=== PATIENT | female | born 1965 | race Caucasian/White ===

== ENCOUNTER 2020-04-03 10:01 | Observation (INO) | payer OTHER ==
[~2020-04-03] VITALS: Ht 165.1 cm; Wt 100.6 kg
--- NOTE | 2020-04-03 10:24 | PHYS DOC ---
Past History Past Medical History: Other (ibs) Adult General Chief Complaint Chief Complaint: SHORTNESS OF BREATH HPI HPI Patient is a 55-year-old female who presents for shortness of breath. Patient reports acute on chronic shortness of breath and feelings of chest pressure. Reports symptoms have worsened in the last 3 weeks but really in past 1 week she has had increased frequency of shortness of breath. Being stationary makes better. Physical exertion makes worse. Patient denies any seema pain but does admit it is hard to take a full breath recently. Timing of symptoms has been waxing and waning since onset. Associated symptoms include lightheaded/dizziness during episodes, vision changes, new productive cough, and nausea. Patient denies any fever, known COVID-19 contacts, chest pain, abdominal pain, changes in bladder or bowel function. Patient reports she has been compliant with social distancing, works at home with who also works at home, has groceries delivered to her house etc. No recent medication changes or antibiotics. Patient has good access to primary care physician, primary care physician concerned given story and advised patient to present to our ER for evaluation Review of Systems Review of Systems Fourteen body systems of review of systems have been reviewed. See HPI for pertinent positives and negative responses, other moraes all other systems are negative, non-pertinent or non-contributory Allergies Allergies Allergies Coded Allergies Type Severity Reaction Last Updated Verified erythromycin base Allergy Unknown 04/03/20 Yes Uncoded Allergies Type Severity Reaction Last Updated Verified ERYTHRO Allergy Unknown 04/03/20 Physical Exam Physical Exam Constitutional: Well developed, well nourished, no acute distress, non-toxic appearance. [] HENT: Normocephalic, atraumatic, bilateral external ears normal, oropharynx moist, no oral exudates, nose normal. [] Eyes: PERRLA, EOMI, conjunctiva normal, no discharge. [] Neck: Normal range of motion, no tenderness, supple, no stridor. [] Cardiovascular:Heart rate regular rhythm, no murmur [] Lungs & Thorax: Bilateral breath sounds clear to auscultation [] Abdomen: Bowel sounds normal, soft, no tenderness, no masses, no pulsatile masses. [] Skin: Warm, dry, no erythema, no rash. [] Back: No tenderness, no CVA tenderness. [] Extremities: No tenderness, no cyanosis, no clubbing, ROM intact, no edema. [] Neurologic: Alert and oriented X 3, normal motor function, normal sensory function, no focal deficits noted. [] Psychologic: Affect normal, judgement normal, mood normal. [] Current Patient Data Vital Signs Vital Signs Date Time Temp Pulse Resp B/P (MAP) Pulse Ox O2 Delivery O2 Flow Rate FiO2 04/03/20 22:44 98.4 66 20 130/62 (84) 96 Room Air Lab Results Laboratory Tests Test 04/03/20 10:29 04/03/20 10:39 04/03/20 13:55 04/03/20 17:15 White Blood Count 8.2 x10^3/uL (4.0-11.0) Red Blood Count 4.88 x10^6/uL (3.50-5.40) Hemoglobin 14.6 g/dL (12.0-15.5) Hematocrit 44.7 % (36.0-47.0) Mean Corpuscular Volume 92 fL (79-100) Mean Corpuscular Hemoglobin 30 pg (25-35) Mean Corpuscular Hemoglobin Concent 33 g/dL (31-37) Red Cell Distribution Width 13.6 % (11.5-14.5) Platelet Count 291 x10^3/uL (140-400) Neutrophils (%) (Auto) 68 % (31-73) Lymphocytes (%) (Auto) 25 % (24-48) Monocytes (%) (Auto) 7 % (0-9) Eosinophils (%) (Auto) 0 % (0-3) Basophils (%) (Auto) 1 % (0-3) Neutrophils # (Auto) 5.5 x10^3uL (1.8-7.7) Lymphocytes # (Auto) 2.0 x10^3/uL (1.0-4.8) Monocytes # (Auto) 0.6 x10^3/uL (0.0-1.1) Eosinophils # (Auto) 0.0 x10^3/uL (0.0-0.7) Basophils # (Auto) 0.0 x10^3/uL (0.0-0.2) D-Dimer (Barbara) 0.30 mg/L (0.00-0.50) Sodium Level 140 mmol/L (136-145) Potassium Level 3.8 mmol/L (3.5-5.1) Chloride Level 103 mmol/L (98-107) Carbon Dioxide Level 24 mmol/L (21-32) Anion Gap 13 (6-14) Blood Urea Nitrogen 9 mg/dL (7-20) Creatinine 0.9 mg/dL (0.6-1.0) Estimated GFR (Cockcroft-Gault) 65.0 BUN/Creatinine Ratio 10 (6-20) Glucose Level 89 mg/dL (70-99) Calcium Level 9.6 mg/dL (8.5-10.1) Total Bilirubin 0.3 mg/dL (0.2-1.0) Aspartate Amino Transf (AST/SGOT) 16 U/L (15-37) Alanine Aminotransferase (ALT/SGPT) 19 U/L (14-59) Alkaline Phosphatase 100 U/L (46-116) Troponin I Quantitative < 0.017 ng/mL (0-0.055) < 0.017 ng/mL (0-0.055) < 0.017 ng/mL (0-0.055) WH-Rep-D-Type Natriuretic Peptide 58 pg/mL (0-124) Total Protein 7.8 g/dL (6.4-8.2) Albumin 4.1 g/dL (3.4-5.0) Albumin/Globulin Ratio 1.1 (1.0-1.7) Lactic Acid Level 1.0 mmol/L (0.4-2.0) EKG EKG EKG ordered and interpreted by myself at 1022 hrs. as sinus rhythm at 76 bpm, unremarkable intervals, left axis deviation, no ischemic findings, no STEMI Radiology/Procedures Radiology/Procedures PROCEDURE: PORTABLE CHEST 1V EXAM: PORTABLE CHEST 1V INDICATION: Reason: shob / Spl. Instructions: / History: . TECHNIQUE: Single view COMPARISON: None FINDINGS: The heart size is normal. The great vessels appear unremarkable. There is no hilar or mediastinal mass. The lungs are clear. There is no pleural effusion or pneumothorax. There are no significant osseous abnormalities. IMPRESSION: No active cardiopulmonary disease. Electronically signed by: Samantha Jones MD (04/03/2020 10:48 AM) [id number] Heart Score HEART Score for Chest Pain: HEART Score for Chest Pain Response (Comments) Value History Slighlty/Non-Suspicious 0 ECG Normal 0 Age >45 - < 65 1 Risk Factors 1 or 2 Risk Factors 1 Troponin < Normal Limit 0 Total 2 Risk Factors: Risk Factors: DM, Current or recent (<one month) smoker, HTN, HLP, family history of CAD, obesity. Risk Scores: Risk Factors: DM, Current or recent (<one month) smoker, HTN, HLP, family history of CAD, obesity. Course & Med Decision Making Course & Med Decision Making Pertinent Labs and Imaging studies reviewed. (See chart for details) I discussed with patient I found no emergent and/or surgical findings on initial physical exam and work-up but could not definitively rule out any concerning cardiac pathology without observation in the inpatient setting I called on-call hospitalist, Dr. Thorne, he was agreeable for admission under his care I discussed plan of care with patient and she was amenable, all questions and concerns addressed prior to ER transport to [facility] for continued cardiac observation and intervention as indicated Dragon Disclaimer Dragon Disclaimer This electronic medical record was generated, in whole or in part, using a voice recognition dictation system. PERC Rule for PE PERC Rule for PE Response (Comments) Value Age > 50: Yes 1 HR > 100: No 0 Sa02 on room air <95%: No 0 Unilateral leg swelling: No 0 Hemoptysis: No 0 Recent surgery or trauma: No 0 Prior PE or DVT: No 0 Hormone use: No 0 Total 1 Departure Departure: Impression: Primary Impression: Chest pain, rule out acute myocardial infarction Disposition: ADMITTED INPT THIS HOSP Admitting Physician: Ramiro hTorne Condition: STABLE Referrals: JOCELYNE JIMENEZ (PCP) ALISE ANGEL DO Apr 03, 2020 10:24
--- NOTE | 2020-04-03 10:51 | RAD ---
EXAM: PORTABLE CHEST 1V INDICATION: Reason: shob / Spl. Instructions: / History: . TECHNIQUE: Single view COMPARISON: None FINDINGS: The heart size is normal. The great vessels appear unremarkable. There is no hilar or mediastinal mass. The lungs are clear. There is no pleural effusion or pneumothorax. There are no significant osseous abnormalities. IMPRESSION: No active cardiopulmonary disease. Electronically signed by: Smaantha Jones MD (04/03/2020 10:48 AM) [id number]
[2020-04-03 11:02] LABS: BASO % 1 % (0-3); EOS % 0 % (0-3); HEMATOCRIT 44.7 % (36.0-47.0); HEMOGLOBIN 14.6 g/dL (12.0-15.5); LYMPH % 25 % (24-48); MEAN CORPUSCULAR HEMOGLOBIN 30 pg (25-35); MEAN CORPUSCULAR HGB CONC 33 g/dL (31-37); MEAN CORPUSCULAR VOLUME 92 fL (79-100); MONO # 0.6 x10^3/uL (0.0-1.1); MONO % 7 % (0-9); NEUT # 5.5 x10^3uL (1.8-7.7); NEUT % 68 % (31-73); PLATELET COUNT 291 x10^3/uL (140-400); RED BLOOD COUNT 4.88 x10^6/uL (3.50-5.40); RED CELL DISTRIBUTION WIDTH 13.6 % (11.5-14.5); WHITE BLOOD COUNT 8.2 x10^3/uL (4.0-11.0)
[2020-04-03 11:08] LABS: CALCIUM 9.6 mg/dL (8.5-10.1); CREATININE 0.9 mg/dL (0.6-1.0); POTASSIUM 3.8 mmol/L (3.5-5.1)
[2020-04-03 11:24] LABS: ALBUMIN 4.1 g/dL (3.4-5.0); ALBUMIN/GLOBULIN RATIO 1.1 (1.0-1.7); TOTAL BILIRUBIN 0.3 mg/dL (0.2-1.0); TOTAL PROTEIN 7.8 g/dL (6.4-8.2)
--- NOTE | 2020-04-03 12:41 | EKG ---
[address] [address] Test Date: 2020-04-03 Test Time: 10:18:48 Pat Name: GENIA DUNHAM Department: Room: Gender: F Facility Technician: LYSSA : 1965 Requested By: ALISE ANGEL Order Number: [id number] Reading MD: Measurements Intervals [place] Rate: 76 P: 56 ND: 136 QRS: -19 QRSD: 80 T: 25 QT: 406 QTc: 456 Interpretive Statements SINUS RHYTHM LEFTWARD AXIS OTHERWISE NORMAL ECG RI6.02 No previous ECG available for comparison
[2020-04-03] MEDS ORDERED: ACETAMINOPHEN 325 MG TABLET PO PRN (13:00)
[2020-04-03] MEDS ORDERED: NITROGLYCERIN SUBLINGUAL 0.4 MG BOTTLE OF 25. SL PRN (13:00)
--- NOTE | 2020-04-03 13:43 | HP ---
ADMIT DATE: 04/03/2020 ATTENDING PHYSICIAN: Dr. Gomez. CHIEF COMPLAINT: Chest pressure and some dyspnea. HISTORY OF PRESENT ILLNESS: The patient is a 55-year-old female admitted through the ED with some worsening symptoms of dyspnea. She has had chest pressure, epigastric in nature. There is a remote history of peptic ulcer disease in the past. In the ED, the workup was fairly unremarkable. Chest x-ray did not demonstrate any infiltrates or decompensation. Her first set of cardiac enzymes were negative for coronary ischemia. She is a smoker, but is trying to cut back. She has been doing some vaping. She did notice some hemoptysis this morning of blood-tinged sputum. The patient was fairly comfortable by the time I saw her. We were called to admit her for observation. We will get our Cardiology to see her first thing in the morning. She has not had a cardiac workup before. PAST MEDICAL HISTORY: Significant for hypertension, gastroesophageal reflux disease. ALLERGIES: SHE HAS ALLERGIES TO ERYTHROMYCIN. CURRENT MEDICATIONS: I do not see any prescription meds at this time. SOCIAL HISTORY: She drinks alcohol socially. She drinks quite a bit of caffeine daily. She has been taking [id number] ibuprofen and she also smokes cigarettes, half a pack of cigarettes daily. FAMILY HISTORY: Father at age 85 of complications of Alzheimer's. Mom is still alive at age 90 in fairly good health. She is , 2 children, sons are adults and grown. 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 REVIEW OF SYSTEMS: Significant for the hemoptysis as described. She has had some headaches. The chest pressure woke her up at night. Recently, she has had increased alcohol use, smoking and nonsteroidal anti-inflammatory drug use. No recent COVID exposures. She denied any recent travel. All other systems reviewed and turned to be negative. PHYSICAL EXAMINATION: GENERAL: When I saw her, this is a pleasant, middle-aged female. INITIAL VITAL SIGNS: Showed a blood pressure 144/71 mmHg, temperature 98.2 degrees Fahrenheit, oxygen saturation 96% on room air, pulse 85 and regular. HEENT: Head is without trauma. Pupils are reactive. Sclerae nonicteric. Oropharynx clear. NECK: Supple, no bruits. LUNGS: Otherwise clear. CARDIOVASCULAR: Showed regular heart tones. No gallops. ABDOMEN: Soft, no masses, no guarding, rebound tenderness. EXTREMITIES: Showed no cyanosis or edema. NEUROLOGIC: Focally intact. Speech is fluent. Automatic Maintainer intact. SKIN: Otherwise warm and dry. PERTINENT LABORATORY STUDIES: Admission hemoglobin was 14.6 g/dL with white count of 8200. Chemistry panel was unremarkable. Potassium 3.8 mEq, creatinine is 0.9 mg percent. The first cardiac enzymes negative for coronary ischemia. ASSESSMENT: 1. A 55-year-old female with atypical chest pain. I do not believe these are cardiac in nature. 2. Non-steroid anti-inflammatory drug gastritis. 3. Chronic obstructive pulmonary disease with some hemoptysis. 4. Hypertension. PLAN: 1. Observation status. 2. Serial cardiac enzymes. 3. Continue higher dose omeprazole. 4. Avoid nonsteroidal agents. 5. Strong encouragement to quit smoking. 6. We will have Cardiology service to see her in the morning for evaluation. ALLIE GOMEZ MD DR: MATT/jessica JOB#: [id number] / [id number] JOCELYNE Ruiz
[2020-04-03 16:04] VITALS: BP 125/80
[2020-04-03] MEDS ORDERED: OMEP40CA45 PO (16:48)
[2020-04-03] MEDS ORDERED: [UNRECOGNIZED DRUG - OTHER] INH (16:48)
[2020-04-03] MEDS ORDERED: MULT-245 PO (16:48)
[2020-04-03] MEDS ORDERED: LACT1CAP6 PO (16:48)
[2020-04-03 19:45] VITALS: BP 122/60
[2020-04-03 22:44] VITALS: BP 130/62
[2020-04-04 06:22] VITALS: BP 120/63
--- NOTE | 2020-04-04 10:50 | DS ---
DATE OF DISCHARGE: 04/04/2020 ATTENDING PHYSICIAN: Dr. Gomez. FINAL DISCHARGE DIAGNOSES: 1. Atypical chest pain, resolved, noncardiac in nature. 2. Nonsteroidal anti-inflammatory drug gastritis. 3. Mild chronic obstructive pulmonary disease with some hemoptysis, resolved. 4. Underlying insomnia with associated anxiety. HISTORY AND PHYSICAL: This is a pleasant 55-year-old female who was admitted to the ED with a localized epigastric pain and pressure. She is a smoker. She had a fairly unremarkable workup in the ED. EKG and chest x-ray were nondiagnostic. Cardiac enzymes were negative. It turns out that she was using quite a bit of [id number] ibuprofen along with caffeine and some alcohol use. She was admitted for further treatment and evaluation, overnight observation. OBJECTIVE FINDINGS/PHYSICAL EXAMINATION: Please see my dictated note. PERTINENT LABORATORY AND X-RAY STUDIES: Three sets of cardiac enzymes were negative for coronary ischemia. Hemoglobin maintained at 14.6 g/dL, white count was 8200. Electrolytes, BUN and creatinine all within normal range. Nonfasting blood sugar 89. Transaminases and liver panel unremarkable. Admission chest x-ray showed no acute cardiopulmonary process. COURSE IN THE HOSPITAL: The patient was admitted. We restarted her proton pump inhibitor. Pain subsided and went away. Three sets of cardiac enzymes are negative for coronary ischemia. We were going to ask her fermentologist to see her should the enzymes turned positive; however, these were all normal. Her symptoms have subsided and we canceled the consultation for now. By the second hospital day, she was doing much better. We had a long discussion regarding lifestyle, strong recommendation to avoid further tobacco use, alcohol, cut back her caffeine use and to avoid ibuprofen altogether. I recommended Tylenol as needed for pain. On the second hospital day, her blood pressure was 120/63, pulse was 74 and regular, temperature afebrile. Room air saturation 95%. She looked well. She had no further symptoms. Lungs were clear and her heart rate was regular. She is therefore discharged home. She did have some issues with insomnia. I did take the liberty of writing her a script for Restoril 30 mg 1 at bedtime. Other home meds including Prilosec, multivitamin and lactobacillus remains unchanged. She will follow up with her regular primary care physician. She was discharged then from our hospital in stable condition with explicit instructions and followup care. ALLIE GOMEZ MD DR: MATT/jessica JOB#: [id number] / [id number] JOCELYNE Ruiz
== END 2020-04-04 11:00 | disposition home or self-care (01) ==
LOC: ER 10:01 → 1 SOUTH 13:54
PROVIDERS: ADMIT Hospitalist; ATTEND Hospitalist
DX: R07.89 Other chest pain (principal); Z20.828 Contact with and (suspected) exposure to other viral communicable diseases; K29.70 Gastritis, unspecified, without bleeding; J44.9 Chronic obstructive pulmonary disease, unspecified; I10 Essential (primary) hypertension; R04.2 Hemoptysis; F41.9 Anxiety disorder, unspecified; K21.9 Gastro-esophageal reflux disease without esophagitis; G47.00 Insomnia, unspecified; F17.210 Nicotine dependence, cigarettes, uncomplicated
CPT/HCPCS: 36415; 71045; 80053; 80061; 83605; 83880; 84484; 85025; 85379; 93005; 99285; G0378; U0003; G0379